=== PATIENT | male | born 1985 | race Caucasian/White ===

== ENCOUNTER 2017-04-25 17:36 | Emergency (ER) | payer OTHER | END 2017-04-25 19:55 | disposition home or self-care (01) | LOC: D.ER 17:36 | DX: F41.9 Anxiety disorder, unspecified (principal) ==

== ENCOUNTER 2017-08-22 15:08 | Emergency (ER) | payer OTHER | END 2017-08-22 16:32 | disposition left against medical advice (07) | LOC: D.ER 15:08 | DX: F19.10 Other psychoactive substance abuse, uncomplicated (principal) ==

== ENCOUNTER 2017-09-22 20:08 | Emergency (ER) | payer OTHER ==
[~2017-09-22] VITALS: Ht 198.1 cm; Wt 113.6 kg
[2017-09-22 20:26] VITALS: Ht 198.1 cm; Wt 113.6 kg
[2017-09-22] MEDS ORDERED: BACTRIM DS TABL1 TAB (20:27)
[2017-09-22] MEDS ORDERED: NEURONTIN600 MG PO (20:27)
[2017-09-22] MEDS ORDERED: CLEOCIN HCL300 MG PO (23:13)
[2017-09-23 00:17] VITALS: BP 122/77
== END 2017-09-23 00:18 | disposition home or self-care (01) ==
LOC: D.ER 20:08
DX: L03.113 Cellulitis of right upper limb (principal)